=== PATIENT | male | born 1990 | race African-American/Black ===

== ENCOUNTER 2020-12-19 14:42 | Emergency (ER) | payer OTHER ==
[~2020-12-19] VITALS: Ht 200.7 cm; Wt 99.8 kg
[~2020-12-19 14:42] MED LIST: ELIMITE60 GM TP
[2020-12-19] MEDS ORDERED: DOXYCYCLINE 10100 MG PO (15:06)
[2020-12-19] MEDS ORDERED: SUPRAX400 M1 PO (15:06)
[2020-12-19 15:19] VITALS: BP 145/78
== END 2020-12-19 15:20 | disposition home or self-care (01) ==
LOC: M.ERS 14:42
DX: Z20.2 Contact with and (suspected) exposure to infections with a predominantly sexual mode of transmission (principal); F17.210 Nicotine dependence, cigarettes, uncomplicated